=== PATIENT | female | born 1945 | race Asian ===

== ENCOUNTER → 2016-09-24 | Outpatient (CLI) | payer MEDICARE, OTHER ==
[~2016-09-24] MED LIST: AMLO1TAB30 PO; ASPI-825 PO; ATOR20TA86 PO; CHOL20002 PO; CLON.1 PO
== END | disposition home or self-care (01) ==
LOC: RADPV 07:56
PROVIDERS: ATTEND Legal Medicine
DX: I70.0 Atherosclerosis of aorta (principal)
CPT/HCPCS: 71020

== ENCOUNTER → 2018-04-01 | Outpatient (CLI) | payer MEDICARE, OTHER ==
[~2018-04-01] MED LIST changes: +CLON-570 PO; -CLON.1 PO
== END | disposition home or self-care (01) ==
LOC: RADPV 11:04
PROVIDERS: ATTEND Legal Medicine
DX: I70.0 Atherosclerosis of aorta (principal); I51.7 Cardiomegaly

== ENCOUNTER → 2018-06-02 | Outpatient (CLI) | payer MEDICARE, MEDICAID | END | disposition home or self-care (01) | LOC: RADPV 10:00 | PROVIDERS: ATTEND Legal Medicine | DX: M43.22 Fusion of spine, cervical region (principal); M77.8 Other enthesopathies, not elsewhere classified; M46.02 Spinal enthesopathy, cervical region; M19.011 Primary osteoarthritis, right shoulder; M19.012 Primary osteoarthritis, left shoulder; M25.812 Other specified joint disorders, left shoulder | CPT/HCPCS: 72040 ==

== ENCOUNTER → 2020-05-24 | Outpatient (CLI) | payer MEDICARE ==
[~2020-05-24] MED LIST changes: -CLON-570 PO; +CLON0.1T83 PO
== END | disposition home or self-care (01) ==
LOC: RADPV 10:12
PROVIDERS: ATTEND Podiatrist Foot & Ankle Surgery
DX: M19.072 Primary osteoarthritis, left ankle and foot (principal); M79.672 Pain in left foot; M20.12 Hallux valgus (acquired), left foot; M79.89 Other specified soft tissue disorders